=== PATIENT | male | born 1965 | race Caucasian/White ===

== ENCOUNTER 2018-10-03 09:26 | Emergency (ER) | payer OTHER ==
[~2018-10-03] VITALS: Ht 182.9 cm; Wt 89.5 kg
[~2018-10-03 09:26] MED LIST: BENADRYL50 MG PO; FISH OIL1000 MG PO; SUDAFED30 MG PO
[2018-10-03 09:35] VITALS: TEMP 100.1
[2018-10-03 11:42] LABS: HEMATOCRIT 43.2 % (42.0-52.0); MEAN CELL VOLUME 83 fl (80.0-100.0); MEAN CORPUSCULAR HEMOGLOBIN 29 pg (27.0-31.0); MEAN CORPUSCULAR HGB CONC 35 g/dl (33.0-37.0); MEAN PLATELET VOLUME 9.8 fl (7.4-10.4); PLATELET COUNT 98 K/mm3 (130-400); REDCELL DISTRIBUTION WIDTH-CV 12.3 % (11.5-14.5)
[2018-10-03 11:52] LABS: ALBUMIN 3.9 gm/dL (3.5-5.0); C-REACTIVE PROTEIN 7.9 mg/dL (0.0-0.9); CALCIUM 8.9 mg/dL (8.4-10.2); CREATININE, serum 0.78 (0.66-1.25); POTASSIUM 4.1 mmol/L (3.4-5.0); TOTAL PROTEIN 6.9 gm/dL (6.4-8.2)
[2018-10-03 12:06] LABS: BAND 37 % (0-10); LYMPHOCYTE 23 % (20.0-51.0); NEUTROPHILS 35 % (42.0-75.2)
[2018-10-03 12:07] LABS: PLATELET ESTIMATE DECREASED (NORMAL)
[2018-10-03 12:48] LABS: COLLECTION METHOD CLEAN CATCH
[2018-10-03 12:55] LABS: PH 6 (5-8); SQUAMOUS EPITHELIAL None Seen /hpf; URINE APPEARANCE Clear; URINE BACTERIA None Seen /hpf; URINE BILIRUBIN Negative (NEGATIVE); URINE BLOOD Negative (NEGATIVE); URINE COLOR Yellow; URINE GLUCOSE Negative (NEGATIVE); URINE KETONE Negative (NEGATIVE); URINE LEUKOCYTE ESTERASE Negative (NEGATIVE); URINE NITRATE Negative (NEGATIVE); URINE PROTEIN(semi-quant) Negative (NEGATIVE); URINE RBC 0-2 /hpf
[2018-10-03] MEDS ORDERED: ZOFRAN ODT4 MG PO (14:34)
[2018-10-03 14:49] VITALS: BP 128/74; PULSE 74
== END 2018-10-03 14:51 | disposition home or self-care (01) ==
LOC: COL.ER 09:26
PROVIDERS: Physician Assistant
DX: E78.00 Pure hypercholesterolemia, unspecified (principal); B34.9 Viral infection, unspecified; R94.5 Abnormal results of liver function studies; Z88.0 Allergy status to penicillin
CPT/HCPCS: J1885; J3010; J7030

== ENCOUNTER → 2019-04-05 | Outpatient (CLI) | payer OTHER ==
[~2019-04-05] MED LIST changes: +ZOFRAN ODT4 MG PO
== END ==
LOC: COL.RAD 11:38
DX: M25.562 Pain in left knee (principal)